=== PATIENT | male | born 1940 | race Caucasian/White ===

== ENCOUNTER 2017-11-11 05:06 | Day surgery (SDC) | payer BC ==
[2017-10-28 09:07] VITALS: BMI 23.0
--- NOTE | 2017-10-28 09:32 | PAT Medication Instructions ---
Service Date Oct 28, 2017. Current Home Medication List Aspirin (Aspirin Chewable), 81 MG PO QAM Cholecalciferol (Vitamin D), 1,000 PO DAILY Cyanocobalamin (Vitamin B-12), 1,000 MCG PO DAILY Dorzolamide Hcl-Timolol Maleat (Cosopt Oph), 1 DROPS OP BID Ferrous Sulfate (Ferrous Sulfate), 325 MG PO QAM Glimepiride (Amaryl), 2 MG PO DAILY AT LUNCH Hydrochlorothiazide (Hctz), 0.5 TAB PO DAILY AT LUNCH Levothyroxine Sodium (Levothyroxine Sodium), 25 MCG PO QAM Losartan Potassium (Cozaar), 100 MG PO QPM Metformin Hcl (Glucophage), 1,000 MG PO BID Metoprolol Tartrate (Lopressor) (Lopressor), 50 MG PO BID Multivitamin (Multivitamin), 1 TAB PO QAM Pioglitazone (Actos), 1 TAB PO QPM Simvastatin (Zocor), 40 MG PO QPM Medication Instructions For Your Scheduled Surgery - Check with surgeon and speck dyer for instructions: Aspirin (Aspirin Chewable), 81 MG PO QAM - Hold the following medications 24 hours prior to surgery: Losartan Potassium (Cozaar), 100 MG PO QPM - Hold the following medications 48 hours prior to surgery: Metformin Hcl (Glucophage), 1,000 MG PO BID - Hold the following medications the morning of surgery: Cholecalciferol (Vitamin D), 1,000 PO DAILY Cyanocobalamin (Vitamin B-12), 1,000 MCG PO DAILY Ferrous Sulfate (Ferrous Sulfate), 325 MG PO QAM Glimepiride (Amaryl), 2 MG PO DAILY AT LUNCH Hydrochlorothiazide (Hctz), 0.5 TAB PO DAILY AT LUNCH Multivitamin (Multivitamin), 1 TAB PO QAM - Take the following medications the morning of surgery with a sip of water: Metoprolol Tartrate (Lopressor) (Lopressor), 50 MG PO BID Levothyroxine Sodium (Levothyroxine Sodium), 25 MCG PO QAM Dorzolamide Hcl-Timolol Maleat (Cosopt Oph), 1 DROPS OP BID - Take the following medications as scheduled the night before surgery: Pioglitazone (Actos), 1 TAB PO QPM Simvastatin (Zocor), 40 MG PO QPM Metoprolol Tartrate (Lopressor) (Lopressor), 50 MG PO BID Dorzolamide Hcl-Timolol Maleat (Cosopt Oph), 1 DROPS OP BID If you have any questions please call us at [phone] or [phone] or [phone]
[~2017-11-11] VITALS: Ht 165.1 cm; Wt 65.3 kg
[~2017-11-11 05:06] MED LIST: ACT30 PO; ASPCH81X PO; CHOL100010 PO; CYAN10005 PO; DORZ1SOL6 OP; FERR325T5 PO; GLIM2TAB PO; HYDR25TA4 PO; LEVO25TA5 PO; LOSA1TAB38 PO; METF-384 PO; METO50TA16 PO; MULT-506 PO; SIMV80TA2 PO
[2017-11-11 05:45] VITALS: Ht 165.1 cm; Wt 65.3 kg
[2017-11-11] MEDS ORDERED: LACTATED RINGER'S 1000ML 1,000 ML IV SCH (06:00)
[2017-11-11] MEDS ORDERED: CEFAZOLIN 2000MG IV PUSH 15 ML IV SCH (06:00)
[2017-11-11] MEDS ORDERED: PROPOFOL IV EMULSION 10 MG/ML 20 ML VIAL IV ONE (06:19)
[2017-11-11] MEDS ORDERED: ONDANSETRON INJ 2 MG/ML 2 ML VIAL ONE (06:19)
[2017-11-11] MEDS ORDERED: FENTANYL CITRATE INJ 50 MCG/1 ML 2 ML VIAL ONE ×2 (06:19→07:56)
[2017-11-11] MEDS ORDERED: MIDAZOLAM HCL 1 MG/ML 2ML VIAL ONE (06:19)
[2017-11-11] MEDS ORDERED: LIDOCAINE HCL 2% 2 ML VIAL (20MG/ML) ONE (06:19)
[2017-11-11] MEDS ORDERED: BUPIVACAINE 0.5 % 5 MG/1 ML MPF 30ML VIAL ONE (06:45)
--- NOTE | 2017-11-11 06:53 | History & Physical Bridge Note ---
H&P Re-Evaluation Bridge Note: I have examined the patient, reviewed the History & Physical and in the interval since the performance of the History & Physical I have noted the following changes of clinical significance: No changes noted
[2017-11-11] MEDS ORDERED: FENTANYL CITRATE INJ 50 MCG/1 ML 2 ML VIAL IV PRN (07:15)
[2017-11-11] MEDS ORDERED: HYDROmorphone INJ 1 MG/ML SYR IV PRN (07:15)
[2017-11-11] MEDS ORDERED: ATROPINE SULFATE 0.1 MG/ML 5ML SYR IV PRN (07:15)
[2017-11-11] MEDS ORDERED: EpHEDrine SULFATE INJ 50 MG/ML AMP IV PRN (07:15)
[2017-11-11] MEDS ORDERED: ONDANSETRON INJ 2 MG/ML 2 ML VIAL IV PRN ×2 (07:15→08:45)
[2017-11-11] MEDS ORDERED: GLYCOPYRROLATE INJ 0.2 MG/ML VIAL ONE ×2 (07:39)
[2017-11-11] MEDS ORDERED: NEOSTIGMINE METHYLSULFATE 5 MG/5 ML SYR ONE (07:39)
[2017-11-11] MEDS ORDERED: ROCURONIUM BROMID 50MG/5ML SYR ONE (08:14)
[2017-11-11] MEDS ORDERED: EpHEDrine SULFATE 50MG/5ML SYR ONE (08:24)
[2017-11-11] MEDS ORDERED: SODIUM CHLORIDE 0.9% 1000ML 1,000 ML IV SCH (08:33)
--- NOTE | 2017-11-11 08:33 | [facility] Post Operative Brief Note ---
Immediate Operative Summary Operative Date Nov 11, 2017. Pre-Operative Diagnosis Left inguinal hernia Post-Operative Diagnosis same as preop Procedure(s) Performed Repair of Left Inguinal Hernia, with mesh Surgeon Dr. Andrade Health Information Internship Surgeon(s) Marlene Andrade PA-C Estimated Blood Loss 10 ml Findings Consistent with Post-Op Diagnosis Specimens A: Left inguinal hernia sac Drains None Anesthesia Type General Complication(s) none
--- NOTE | 2017-11-11 08:39 | Discharge Instructions ---
Discharge Instructions Date of Service Nov 11, 2017. Admission Reason for Admission: Left Inguinal Hernia Discharge Discharge Diagnosis / Problem: Same Discharge Goals Goal(s): Decrease discomfort Activity Recommendations Activity Limitations: per Instructions/Follow-up section Lifting Limitations: no more than 10 pounds (for 6 weeks) Shower/Bathe: tomorrow (shower only) . Current Hospital Diet Patient's current hospital diet: Discharge Diet Recommended Diet: Regular Diet Procedures Procedures Performed: Repair of Left Inguinal Hernia, with mesh Pending Studies Studies pending at discharge: no Medical Emergencies . Who to Call and When: Medical Emergencies: If at any time you feel your situation is an emergency, please call 911 immediately. . Non-Emergent Contact Non-Emergency issues call your: Primary Care Provider, Surgeon Call Non-Emergent contact if: your pain is worsening, wound has increased redness, wound has increased pain . "Provider Documentation" section prepared by Jayjay Andrade. . VTE Core Measure Inpt VTE Proph given/why not?: Treatment not indicated
[2017-11-11] MEDS ORDERED: MoRPHine SULFATE 4 MG/ML 1 ML CARP\\VIAL IV PRN (08:45)
--- NOTE | 2017-11-11 09:44 | Anesthesiology Progress Note ---
Anesthesia Post Op Note Date & Time Nov 11, 2017 at 09:44 Vital Signs Pain Intensity: 4.0 Vital Signs Past 12 Hours Date Time Temp Pulse Resp B/P (MAP) Pulse Ox O2 Delivery O2 Flow Rate FiO2 11/11/17 09:41 36.5 11/11/17 09:40 51 16 11/11/17 09:40 51 16 95 11/11/17 09:36 136/59 11/11/17 09:35 59 20 11/11/17 09:35 59 20 98 11/11/17 09:31 132/76 11/11/17 09:30 56 14 11/11/17 09:30 56 14 100 11/11/17 09:26 126/61 11/11/17 09:25 58 15 11/11/17 09:25 58 15 96 11/11/17 09:21 132/60 11/11/17 09:20 53 12 100 11/11/17 09:20 53 12 11/11/17 09:16 141/60 11/11/17 09:15 55 18 11/11/17 09:15 55 18 100 11/11/17 09:11 132/65 11/11/17 09:10 60 16 100 11/11/17 09:10 58 16 11/11/17 09:06 127/58 11/11/17 09:05 58 16 100 11/11/17 09:05 57 16 11/11/17 09:01 124/56 11/11/17 09:00 57 16 11/11/17 09:00 57 16 133/58 100 11/11/17 08:55 36.1 55 14 133/59 100 Oxymask 7 Notes Mental Status: alert / awake / arousable, participated in evaluation Pt Amnestic to Procedure: Yes Nausea / Vomiting: adequately controlled Pain: adequately controlled Airway Patency, RR, SpO2: stable & adequate BP & HR: stable & adequate Hydration State: stable & adequate Anesthetic Complications: no major complications apparent
[2017-11-11 09:55] VITALS: BP 177/73; PULSE 51; TEMP 37.1; O2SAT 98
[2017-11-11 10:25] VITALS: BP 161/67; PULSE 49; O2SAT 95
[2017-11-11] MEDS: OXYCODONE/ACETAMINOPHEN 5-325 TAB PO PRN ×2 (10:39→14:32)
[2017-11-11 10:55] VITALS: BP 161/67; PULSE 51; TEMP 36.5; O2SAT 93
[2017-11-11] MEDS ORDERED: NURSING VERBAL MED ORDER ONE (12:15)
--- NOTE | 2017-11-11 20:54 | OPERATIVE REPORT ---
DATE OF OPERATION: 11/11/2017 PREOPERATIVE DIAGNOSIS: Left inguinal hernia. POSTOPERATIVE DIAGNOSIS: Left indirect inguinal hernia. PROCEDURE: Repair of left indirect inguinal hernia with mesh. SURGEON: Jayjay Andrade MD. ADDICTIONS COUNSELOR: Marlene Andrade PA-C. FINDINGS: The patient had a moderate sized indirect inguinal hernia. There was no direct component, but there was some attenuation of the floor of the canal near the internal ring. There were no incarcerated contents in the hernia sac. The cord structures were normal. TECHNIQUE: The patient was given a general anesthetic and the area was prepped and draped in the usual sterile fashion. Left inguinal incision was made, carried down through the subcutaneous tissue until the external oblique and external ring could be identified. A small incision was made in the external oblique. The underlying structures were off its undersurface and it was opened through the external ring and it was opened superolaterally as well. The cord structures were identified and were elevated away from the floor of the canal at the pubic tubercle and away from the floor of the canal up to the internal ring. That allowed me to identify the fact that there was no direct hernia. The cremaster fibers were opened around the proximal cord and the hernia sac was identified. It was densely adherent to the cord structures. It required cautery with sharp and blunt dissection to separate the hernia sac away from the cord structures, working up towards the internal ring and this dissection was carried out until this sac was freed inside the internal ring. This was placed back into its anatomic position. The floor of the canal was then further established by dividing additional cremaster fibers and elevating the remainder of the cord structures. These were isolated with a Jacob drain. The attenuated area of the floor of the canal was oversewn using a running 0 PDS. A piece of preformed inguinal hernia mesh was then placed into the floor of the canal and sewn to the anterior surface of the internal oblique medially, shelving border over the inguinal ligament laterally and the tissue over the pubic bone inferiorly. The legs of the mesh were approximated to each other to create a new internal ring. The external oblique was closed over the cord structures which were then placed back into their anatomic position using a running 2-0 Vicryl. The deep subcutaneous tissue was closed with running 2-0 Vicryl. The superficial subcutaneous tissue was closed with running 3-0 Vicryl and the skin was closed with 4-0 Monocryl in a running subcuticular fashion. The skin was anesthetized with 0.5% Marcaine. The skin was cleansed, dried, benzoin placed. Steri-Strips applied. The estimated blood loss was 5 mL. Sponge, needle and instrument counts were correct prior to closure. The patient tolerated the surgical procedure without complication and was transferred to recovery. I attest to the content of the Intraoperative Record and any orders documented therein. Any exception s are noted below.
== END 2017-11-11 16:45 | disposition home or self-care (01) ==
LOC: C.ACU 05:06
PROVIDERS: ATTEND Surgery
DX: K40.90 Unilateral inguinal hernia, without obstruction or gangrene, not specified as recurrent (principal); E11.22 Type 2 diabetes mellitus with diabetic chronic kidney disease; N28.9 Disorder of kidney and ureter, unspecified; I10 Essential (primary) hypertension; E78.5 Hyperlipidemia, unspecified; Z79.84 Long term (current) use of oral hypoglycemic drugs; Z79.899 Other long term (current) drug therapy; Z79.82 Long term (current) use of aspirin; Z95.1 Presence of aortocoronary bypass graft